=== PATIENT | female | born 1995 | race Caucasian/White ===

== ENCOUNTER 2016-09-07 14:42 | Emergency (ER) | payer OTHER ==
[~2016-09-07] VITALS: Ht 157.5 cm; Wt 92.5 kg
[2016-09-07 14:42] VITALS: BP 148/77
[2016-09-07] MEDS ORDERED: birth control (14:56)
[2016-09-07] MEDS ORDERED: ZYRT10CA PO (14:56)
[2016-09-07] MEDS ORDERED: FLON1SPR (15:26)
== END 2016-09-07 15:38 | disposition home or self-care (01) ==
LOC: M ED 15:24
DX: J00 Acute nasopharyngitis [common cold] (principal); J30.2 Other seasonal allergic rhinitis; Z79.3 Long term (current) use of hormonal contraceptives; Z79.899 Other long term (current) drug therapy

== ENCOUNTER 2016-12-10 20:10 | Emergency (ER) | payer OTHER ==
[~2016-12-10] VITALS: Ht 157.5 cm; Wt 98.0 kg
[2016-12-10 20:10] VITALS: BP 135/86
[~2016-12-10 20:10] MED LIST: FLON1SPR; ZYRT10CA PO; birth control
[2016-12-10] MEDS ORDERED: PRENTAB44 PO (20:29)
[2016-12-10] MEDS ORDERED: ACETAMINOPHEN TAB 650MG DOSE (2X325MG) PO ONE (21:00)
[2016-12-10] MEDS ORDERED: ONDANSETRON 4 MG ORAL DISINTEGRATING TAB (S0181) PO ONE (21:00)
[2016-12-10 21:34] LABS: BASO % 0.2 % (0.0-1.0); EOS # 0.7 10^3/uL (0.0-0.50); EOS % 5.2 % (0.0-3.0); IMMATURE GRANULOCYTE % 0.2 % (0-0); LYMPH % 23.5 % (24.0-44.0); MEAN CORPUSCULAR HGB CONC 34.2 g/dl (32.0-36.5); MEAN CORPUSCULAR VOLUME 93.6 fl (80.0-96.0); MONO % 7.8 % (0.0-5.0); NEUTROPHILS # 8.1 10^3/uL (1.8-7.7); NEUTROPHILS % 63.1 % (36.0-66.0); PLATELET COUNT, AUTOMATED 238 10^3/uL (150-450); WHITE BLOOD COUNT 12.8 10^3/uL (4.0-10.0)
[2016-12-10 21:35] LABS: ADD MORPHOLOGY? NO
[2016-12-10 21:47] LABS: ANION GAP 6 MEQ/L (8-16); BLOOD UREA NITROGEN 8 MG/DL (7-18); CALCIUM LEVEL 9.2 MG/DL (8.5-10.1); CARBON DIOXIDE LEVEL 28 MEQ/L (21-32); CHLORIDE LEVEL 107 MEQ/L (98-107); CREATININE FOR GFR 0.67 MG/DL (0.55-1.02); GLOMERULAR FILTRATION RATE > 60.0 (>60); GLUCOSE, FASTING 78 MG/DL (70-105); POTASSIUM SERUM 3.5 MEQ/L (3.5-5.1); SODIUM LEVEL 141 MEQ/L (136-145)
--- NOTE | 2016-12-10 22:00 | REPUSA ---
Clinical history: bleeding. Findings: Real-time transabdominal and transvaginal ultrasound images of the pelvis were obtained. An anteverted uterus is noted, measuring 9.2 x 4.4 x 5.0 cm. There is a single intrauterine gestational sac with a mean sac diameter of 4.8 mm. No evidence of a pole or yolk sac is identified at thi s time. The right ovary measures 3.5 x 2.0 x 2.4 cm. The left ovary measures 3.0 x 1.6 x 2.0 cm. Ther e is a small right ovarian cyst measuring 1.2 cm. No adnexal masses are seen. Color Doppler flow is s een within both ovaries. There is a small amount of free fluid. Impression: 1. Tiny intrauterine gestational sac, without evidence of a pole or yolk sac at this time. Gest ation measures approximately 5 weeks 2 days by ultrasound measurements. 2. Small right ovarian corpus luteum cyst. 3. Follow-up is recommended as clinically indicated.
== END 2016-12-10 22:58 | disposition home or self-care (01) ==
LOC: M ED 20:10
DX: O20.0 Threatened abortion (principal); Z3A.01 Less than 8 weeks gestation of pregnancy; Z79.899 Other long term (current) drug therapy; Z91.013 Allergy to seafood

== ENCOUNTER → 2016-12-12 | Outpatient (CLI) | payer OTHER ==
[~2016-12-12] MED LIST changes: +PRENTAB44 PO
== END ==
LOC: M LAB 15:29
PROVIDERS: ATTEND Physician Assistant Surgical
DX: O20.9 Hemorrhage in early pregnancy, unspecified (principal); Z3A.00 Weeks of gestation of pregnancy not specified

== ENCOUNTER 2017-03-18 09:57 | Emergency (ER) | payer OTHER ==
[2017-03-18 11:06] LABS: EOS # 0.2 10^3/uL (0.0-0.50); EOS % 2.2 % (0.0-3.0); HEMATOCRIT 38.2 % (36.0-47.0); HEMOGLOBIN 12.9 g/dl (12.0-16.0); IMMATURE GRANULOCYTE % 0.4 % (0-0); LYMPH # 1.7 10^3/uL (1.5-6.5); LYMPH % 17.8 % (24.0-44.0); MEAN CORPUSCULAR HEMOGLOBIN 31.2 pg (27.0-33.0); MEAN CORPUSCULAR HGB CONC 33.8 g/dl (32.0-36.5); MEAN CORPUSCULAR VOLUME 92.5 fl (80.0-96.0); MONO # 0.6 10^3/uL (0.0-0.8); MONO % 6.2 % (0.0-5.0); NEUTROPHILS # 6.9 10^3/uL (1.8-7.7); NEUTROPHILS % 73.4 % (36.0-66.0); PLATELET COUNT, AUTOMATED 275 10^3/uL (150-450); RED BLOOD COUNT 4.13 10^6/uL (4.00-5.40); RED CELL DISTRIBUTION WIDTH 12.9 % (11.5-14.5); WHITE BLOOD COUNT 9.4 10^3/uL (4.0-10.0)
[2017-03-18 11:56] LABS: HCG, SERUM QUANTITATIVE 2307 MIU/ML
== END 2017-03-18 12:32 | disposition home or self-care (01) ==
LOC: M ED 09:57
DX: O26.851 Spotting complicating pregnancy, first trimester (principal); O09.291 Supervision of pregnancy with other poor reproductive or obstetric history, first trimester; Z3A.00 Weeks of gestation of pregnancy not specified
CPT/HCPCS: 76801

== ENCOUNTER 2017-09-16 10:54 | Outpatient (CLI) | payer OTHER ==
[2017-09-16] MEDS: LACTATED RINGER'S 1000 ML IV (11:35)
[2017-09-16] MEDS: LR 1,000 ML IV (12:29)
== END 2017-09-16 14:35 | disposition home or self-care (01) ==
LOC: M LDO 10:54
DX: O99.89 Other specified diseases and conditions complicating pregnancy, childbirth and the puerperium (principal); Z3A.31 31 weeks gestation of pregnancy; E86.0 Dehydration; O99.213 Obesity complicating pregnancy, third trimester; O99.513 Diseases of the respiratory system complicating pregnancy, third trimester
CPT/HCPCS: 59025

== ENCOUNTER 2017-11-01 20:32 | Outpatient (CLI) | payer OTHER ==
[2017-11-01 22:19] LABS: APPEARANCE, URINE CLOUDY (CLEAR); BACTERIA, URINE AUTO 2+ (NEGATIVE); BILIRUBIN, URINE AUTO NEGATIVE (NEGATIVE); BLOOD, URINE BLOOD 1+ (NEGATIVE); COLOR, URINE YELLOW (YELLOW); GLUCOSE, URINE (UA) AUTO NEGATIVE (NEGATIVE); KETONE, URINE AUTO NEGATIVE (NEGATIVE); LEUKOCYTE ESTERASE, URINE AUTO 3+ (NEGATIVE); NITRITE, URINE AUTO NEGATIVE (NEGATIVE); PROTEIN, URINE AUTO NEGATIVE (NEGATIVE); RBC, URINE AUTO 67 /HPF (0-3); SPECIFIC GRAVITY URINE AUTO 1.002 (1.002-1.035); SQUAMOUS EPITHELIAL CELL UR AU 9 /HPF (0-6); UROBILINOGEN, URINE AUTO 0.2 mg/dL (0.0-2.0); WBC, URINE AUTO TNTC /HPF (0-3)
== END 2017-11-01 22:10 | disposition home or self-care (01) ==
LOC: M LDO 20:32
DX: O36.8130 Decreased fetal movements, third trimester, not applicable or unspecified (principal); Z3A.38 38 weeks gestation of pregnancy
CPT/HCPCS: 59025

== ENCOUNTER 2017-11-11 17:05 | Inpatient (IN) | payer OTHER ==
[2017-11-11 18:19] LABS: HEMATOCRIT 34.9 % (36.0-47.0); HEMOGLOBIN 11.2 g/dl (12.0-15.5); MEAN CORPUSCULAR HEMOGLOBIN 28.9 pg (27.0-33.0); MEAN CORPUSCULAR HGB CONC 32.1 g/dl (32.0-36.5); MEAN CORPUSCULAR VOLUME 89.9 fl (80.0-96.0); PLATELET COUNT, AUTOMATED 165 10^3/uL (150-450); RED BLOOD COUNT 3.88 10^6/uL (4.00-5.40); RED CELL DISTRIBUTION WIDTH 14.6 % (11.5-14.5); WHITE BLOOD COUNT 8.5 10^3/uL (4.0-10.0)
[2017-11-11] MEDS: LR 1,000 ML IV (18:46)
[2017-11-11] MEDS: miSOPROStol 50 MCG 1/2 TAB (S0191) PO ×2 (18:46→23:30)
[2017-11-11 18:48] LABS: GLUCOSE,RANDOM 92 MG/DL (LESS THAN 200)
[2017-11-11 18:59] LABS: ESTIMATED AVERAGE GLUCOSE 114 MG/DL (60-110); HEMOGLOBIN A1c 5.6 %
[2017-11-12] MEDS: LR 1,000 ML IV ×4 (02:34→20:55)
[2017-11-12] MEDS: BUTORPHANOL 2 MG/ML INJ (J0595) IV (04:15)
[2017-11-12] MEDS: PROMETHAZINE INJ 25 MG/ML VIAL (J2550) IV (04:15)
[2017-11-12] MEDS ORDERED: BUTORPHANOL 2 MG/ML INJ (J0595) As Ordered (04:17)
[2017-11-12] MEDS ORDERED: PROMETHAZINE INJ 25 MG/ML VIAL (J2550) As Ordered (04:17)
[2017-11-12] MEDS ORDERED: OXYTOCIN DRIP 30 UNITS in APPROPRIATE DILUENT 1 EA IV (08:45)
[2017-11-12] MEDS ORDERED: OXYTOCIN 30 UNITS IN 0.9% NaCl 500ML IV BAG (J2590) As Ordered (08:55)
[2017-11-12] MEDS ORDERED: FENTANYL 2MCG/ML ROPIVACAINE 0.2% IN 0.9% NACL 200ML IVBAG As Ordered (11:38)
[2017-11-12] MEDS ORDERED: EPIDURAL COMMENT XX (13:45)
[2017-11-12] MEDS ORDERED: EPIDURAL/PCA KEYS XX (13:45)
[2017-11-12] MEDS ORDERED: LACTATED RINGER'S 1000 ML IV (13:45)
[2017-11-12] MEDS ORDERED: REFRIGERATOR IV KEYS XX (13:45)
[2017-11-12] MEDS ORDERED: diphenhydrAMINE INJ 50MG/ML VIAL (J1200) IV (13:45)
[2017-11-12] MEDS ORDERED: ePHEDrine SULFATE 25 MG/5 ML(5MG/ML) SYRINGE IV (13:45)
[2017-11-12] MEDS ORDERED: ONDANSETRON 4MG/2ML VIAL (J2405) IV (13:45)
[2017-11-12] MEDS ORDERED: NALOXONE INJ 0.4 MG/1 ML VIAL (J2310) IV (13:45)
[2017-11-12] MEDS ORDERED: FENTANYL/ROPIVACAINE/NACL BAG 200 ML EPIDURAL (13:45)
[2017-11-13] MEDS: LR 1,000 ML IV ×3 (04:46→21:00)
[2017-11-13] MEDS ORDERED: ceFAZolin 2 GM/D5W 50 ML IV BAG (J0690 PER 500MG) As Ordered (05:55)
[2017-11-13] MEDS ORDERED: BICITRA 30ML SOLN UDC As Ordered (05:55)
[2017-11-13] MEDS: BICITRA 30ML SOLN UDC PO (06:00)
[2017-11-13] MEDS ORDERED: OXYTOCIN INJ 10 UNITS/ML VIAL (J2590) As Ordered ×3 (06:26→07:11)
[2017-11-13] MEDS ORDERED: MORPHINE PRES-FREE INJ 10 MG/10 ML VIAL (J2274) As Ordered (06:26)
[2017-11-13] MEDS ORDERED: LIDOCAINE PRES-FREE 2% 10ML AMP As Ordered (06:26)
[2017-11-13] MEDS ORDERED: ONDANSETRON 4MG/2ML VIAL (J2405) IV (06:29)
[2017-11-13] MEDS ORDERED: METOCLOPRAMIDE INJ 10MG/2ML VIAL (J2765) IV (06:29)
[2017-11-13] MEDS ORDERED: NALBUPHINE HCL 10 MG/ML AMP (J2300) IV ×2 (06:29→09:00)
[2017-11-13] MEDS ORDERED: ONDANSETRON 4MG/2ML VIAL (J2405) As Ordered (06:29)
[2017-11-13] MEDS ORDERED: KETOROLAC 60 MG/2 ML VIAL (J1885) As Ordered (06:29)
[2017-11-13] MEDS ORDERED: NALOXONE INJ 0.4 MG/1 ML VIAL (J2310) IV ×2 (06:29)
[2017-11-13] MEDS ORDERED: PROPOFOL 200 MG/20 ML VIAL As Ordered (06:49)
[2017-11-13] MEDS ORDERED: PHENYLephrine HCL 500 MCG/5 ML (100MCG/ML) SYRINGE (J2370) As Ordered (06:56)
[2017-11-13] MEDS ORDERED: fentaNYL 100 MCG/2 ML INJECTION (J3010) As Ordered ×2 (07:04→08:23)
[2017-11-13 07:16] LABS: iSTAT CA++ 4.7 MG/DL (4.5-5.3)
[2017-11-13 07:40] LABS: CORD GAS ABE V -3.4; CORD GAS HCO3 V 21.9 MEQ/L; CORD GAS O2 SAT V 43.6 %; CORD GAS PCO2 V 40.4 mmHg; CORD GAS PH V 7.351 UNITS; CORD GAS PO2 V 21.6 mmHg; CORD GAS SBC V 20.3 MEQ/L; CORD GAS TCO2 V 23.1 MEQ/L
[2017-11-13 07:43] LABS: CORD GAS ABE A -4.8; CORD GAS O2 SAT A < 15.0 %; CORD GAS PCO2 A 46.7 mmHg; CORD GAS PO2 A < 10.0 mmHg; CORD GAS TCO2 A 23.4 MEQ/L
[2017-11-13] MEDS ORDERED: OXYTOCIN 30 UNITS IN 0.9% NaCl 500ML IV BAG (J2590) As Ordered (07:59)
[2017-11-13] MEDS: OXYTOCIN DRIP 30 UNITS in APPROPRIATE DILUENT 1 EA IV (08:02)
[2017-11-13] MEDS ORDERED: RHOGAM 300 MCG (1500 IU) INJ (J2790) IM (08:15)
[2017-11-13] MEDS ORDERED: MEASLES,MUMPS,RUBELLA VACCINE INJ (MMR-II) (90707) SC (08:15)
[2017-11-13] MEDS ORDERED: MEPERIDINE INJ 25 MG/ML VIAL (J2175) IV (09:00)
[2017-11-13] MEDS ORDERED: fentaNYL 100 MCG/2 ML INJECTION (J3010) IV (09:00)
[2017-11-13] MEDS: DOCUSATE SODIUM 100 MG CAP PO ×2 (09:00→19:39)
[2017-11-13] MEDS: PRENATAL VITAMINS CHEWABLE TABLET PO (09:00)
[2017-11-13] MEDS: LACTATED RINGER'S 1000 ML IV (09:15)
[2017-11-13 12:08] LABS: HEMATOCRIT 25.8 % (36.0-47.0); MEAN CORPUSCULAR HEMOGLOBIN 29.5 pg (27.0-33.0); MEAN CORPUSCULAR HGB CONC 32.9 g/dl (32.0-36.5); MEAN CORPUSCULAR VOLUME 89.6 fl (80.0-96.0); PLATELET COUNT, AUTOMATED 133 10^3/uL (150-450); RED BLOOD COUNT 2.88 10^6/uL (4.00-5.40); WHITE BLOOD COUNT 15.2 10^3/uL (4.0-10.0)
[2017-11-13 12:42] LABS: HEMOGLOBIN 8.5 g/dl (12.0-15.5)
[2017-11-13] MEDS: KETOROLAC 30 MG/ML VIAL (J1885) IV ×2 (13:45→19:39)
[2017-11-13] MEDS ORDERED: ENOXAPARIN 40 MG/0.4 ML SYRINGE (J1650) SC (16:00)
[2017-11-13] MEDS: PERCOCET 5MG/325MG TAB PO ×2 (17:03→22:52)
[2017-11-13] MEDS ORDERED: METAL LOCK LOOP XX (19:10)
[2017-11-14] MEDS: KETOROLAC 30 MG/ML VIAL (J1885) IV ×2 (00:53→07:34)
[2017-11-14] MEDS: ONDANSETRON 4MG/2ML VIAL (J2405) IV ×2 (00:55→11:21)
[2017-11-14] MEDS: PERCOCET 5MG/325MG TAB PO (03:25)
[2017-11-14 07:12] LABS: HEMATOCRIT 23.9 % (36.0-47.0); HEMOGLOBIN 7.7 g/dl (12.0-15.5); MEAN CORPUSCULAR HEMOGLOBIN 29.5 pg (27.0-33.0); MEAN CORPUSCULAR HGB CONC 32.2 g/dl (32.0-36.5); MEAN CORPUSCULAR VOLUME 91.6 fl (80.0-96.0); PLATELET COUNT, AUTOMATED 130 10^3/uL (150-450); RED BLOOD COUNT 2.61 10^6/uL (4.00-5.40); RED CELL DISTRIBUTION WIDTH 15.3 % (11.5-14.5); WHITE BLOOD COUNT 12.1 10^3/uL (4.0-10.0)
[2017-11-14] MEDS: ENOXAPARIN 40 MG/0.4 ML SYRINGE (J1650) SC (07:34)
[2017-11-14] MEDS: DOCUSATE SODIUM 100 MG CAP PO ×2 (08:48→20:26)
[2017-11-14] MEDS: PRENATAL VITAMINS CHEWABLE TABLET PO (08:49)
[2017-11-14] MEDS: diphenhydrAMINE 50 MG CAP PO (12:24)
[2017-11-14] MEDS: ACETAMINOPHEN TAB 650MG DOSE (2X325MG) PO (12:24)
[2017-11-14 13:34] LABS: HEMATOCRIT 23.6 % (36.0-47.0); HEMOGLOBIN 7.5 g/dl (12.0-15.5); MEAN CORPUSCULAR HEMOGLOBIN 29.4 pg (27.0-33.0); MEAN CORPUSCULAR HGB CONC 31.8 g/dl (32.0-36.5); MEAN CORPUSCULAR VOLUME 92.5 fl (80.0-96.0); PLATELET COUNT, AUTOMATED 124 10^3/uL (150-450); RED BLOOD COUNT 2.55 10^6/uL (4.00-5.40); RED CELL DISTRIBUTION WIDTH 15.4 % (11.5-14.5); WHITE BLOOD COUNT 11.2 10^3/uL (4.0-10.0)
[2017-11-14] MEDS: IBUPROFEN 800 MG TAB PO ×2 (15:28→22:53)
[2017-11-14] MEDS ORDERED: PILL CRUSHER/CUTTER 1 EACH XX (15:45)
[2017-11-14 15:56] LABS: IMMEDIATE SPIN CROSSMATCH 1 2
[2017-11-14 23:42] LABS: HEMATOCRIT 26.8 % (36.0-47.0); HEMOGLOBIN 8.8 g/dl (12.0-15.5); MEAN CORPUSCULAR HEMOGLOBIN 29.3 pg (27.0-33.0); MEAN CORPUSCULAR HGB CONC 32.8 g/dl (32.0-36.5); MEAN CORPUSCULAR VOLUME 89.3 fl (80.0-96.0); PLATELET COUNT, AUTOMATED 119 10^3/uL (150-450); RED CELL DISTRIBUTION WIDTH 14.8 % (11.5-14.5); WHITE BLOOD COUNT 11.6 10^3/uL (4.0-10.0)
[2017-11-15] MEDS: METOCLOPRAMIDE INJ 10MG/2ML VIAL (J2765) IV (01:12)
[2017-11-15 08:21] LABS: HEMATOCRIT 26.5 % (36.0-47.0); HEMOGLOBIN 8.9 g/dl (12.0-15.5); MEAN CORPUSCULAR HEMOGLOBIN 29.8 pg (27.0-33.0); MEAN CORPUSCULAR HGB CONC 33.6 g/dl (32.0-36.5); MEAN CORPUSCULAR VOLUME 88.6 fl (80.0-96.0); PLATELET COUNT, AUTOMATED 143 10^3/uL (150-450); RED BLOOD COUNT 2.99 10^6/uL (4.00-5.40); RED CELL DISTRIBUTION WIDTH 14.9 % (11.5-14.5); WHITE BLOOD COUNT 11.4 10^3/uL (4.0-10.0)
[2017-11-15] MEDS: PRENATAL VITAMINS CHEWABLE TABLET PO (08:25)
[2017-11-15] MEDS: DOCUSATE SODIUM 100 MG CAP PO (08:27)
[2017-11-15] MEDS: ENOXAPARIN 40 MG/0.4 ML SYRINGE (J1650) SC (08:27)
[2017-11-15] MEDS: IBUPROFEN 800 MG TAB PO (08:27)
== END 2017-11-15 12:05 | disposition home or self-care (01) | DRG 765 ==
LOC: M LDI 17:05 → M OBS 11-13 10:38
PROVIDERS: Obstetrics & Gynecology
PROC: 3E0P7GC Introduction of Other Therapeutic Substance into Female Reproductive, Via Natural or Artificial Opening (ICD-10-PCS; 2017-11-11)
PROC: 30233N1 Transfusion of Nonautologous Red Blood Cells into Peripheral Vein, Percutaneous Approach (ICD-10-PCS; 2017-11-11)
PROC: 10D00Z1 Extraction of Products of Conception, Low, Open Approach (ICD-10-PCS; principal; 2017-11-13)
DX: O99.214 Obesity complicating childbirth (principal); Z68.41 Body mass index [BMI] 40.0-44.9, adult; O67.8 Other intrapartum hemorrhage; E66.9 Obesity, unspecified; O69.89X0 Labor and delivery complicated by other cord complications, not applicable or unspecified; O62.0 Primary inadequate contractions; O90.81 Anemia of the puerperium; O77.0 Labor and delivery complicated by meconium in amniotic fluid; Z37.0 Single live birth; Z3A.39 39 weeks gestation of pregnancy

== ENCOUNTER 2017-11-26 16:17 | Inpatient (IN) | payer OTHER ==
[2017-11-26] MEDS ORDERED: ACETAMINOPHEN 500 MG TAB PO (18:45)
[2017-11-26] MEDS ORDERED: BISACODYL 5 MG TAB PO (18:45)
[2017-11-26 19:56] LABS: BASO % 0.1 % (0.0-1.0); EOS # 0.6 10^3/uL (0.0-0.50); EOS % 4.9 % (0.0-3.0); HEMATOCRIT 33.7 % (36.0-47.0); HEMOGLOBIN 10.7 g/dl (12.0-15.5); IMMATURE GRANULOCYTE % 0.7 % (0-3.0); LYMPH # 1.7 10^3/uL (1.5-6.5); LYMPH % 14.2 % (24.0-44.0); MEAN CORPUSCULAR HEMOGLOBIN 29.2 pg (27.0-33.0); MEAN CORPUSCULAR HGB CONC 31.8 g/dl (32.0-36.5); MEAN CORPUSCULAR VOLUME 92.1 fl (80.0-96.0); MONO # 0.9 10^3/uL (0.0-0.8); MONO % 7.3 % (0.0-5.0); NEUTROPHILS # 8.8 10^3/uL (1.8-7.7); NEUTROPHILS % 72.8 % (36.0-66.0); PLATELET COUNT, AUTOMATED 408 10^3/uL (150-450); RED BLOOD COUNT 3.66 10^6/uL (4.00-5.40); RED CELL DISTRIBUTION WIDTH 14.6 % (11.5-14.5); WHITE BLOOD COUNT 12.1 10^3/uL (4.0-10.0)
[2017-11-26] MEDS: CLINDAMYCIN 900 MG in APPROPRIATE DILUENT 1 EA IV (20:12)
[2017-11-26 20:37] LABS: ALBUMIN 2.7 GM/DL (3.2-5.2); ALBUMIN/GLOBULIN RATIO 0.66 (1.00-1.93); ALKALINE PHOSPHATASE 104 U/L (45-117); ALT/SGPT 21 U/L (12-78); ANION GAP 8 MEQ/L (8-16); AST/SGOT 13 U/L (7-37); BILIRUBIN,TOTAL 0.4 MG/DL (0.2-1.0); BLOOD UREA NITROGEN 13 MG/DL (7-18); CALCIUM LEVEL 8.6 MG/DL (8.5-10.1); CARBON DIOXIDE LEVEL 25 MEQ/L (21-32); CHLORIDE LEVEL 108 MEQ/L (98-107); CREATININE FOR GFR 0.81 MG/DL (0.55-1.30); GLOMERULAR FILTRATION RATE > 60.0 (>60); GLUCOSE, FASTING 96 MG/DL (70-100); POTASSIUM SERUM 3.9 MEQ/L (3.5-5.1); SODIUM LEVEL 141 MEQ/L (136-145); TOTAL PROTEIN 6.8 GM/DL (6.4-8.2)
[2017-11-26] MEDS: GENTAMICIN 80 MG in APPROPRIATE DILUENT 1 EA IV (21:11)
[2017-11-27] MEDS: CLINDAMYCIN 900 MG in APPROPRIATE DILUENT 1 EA IV ×3 (04:07→20:19)
[2017-11-27 06:21] LABS: HEMATOCRIT 32.4 % (36.0-47.0); HEMOGLOBIN 10.1 g/dl (12.0-15.5); MEAN CORPUSCULAR HEMOGLOBIN 28.7 pg (27.0-33.0); MEAN CORPUSCULAR HGB CONC 31.2 g/dl (32.0-36.5); PLATELET COUNT, AUTOMATED 387 10^3/uL (150-450); RED BLOOD COUNT 3.52 10^6/uL (4.00-5.40); RED CELL DISTRIBUTION WIDTH 14.6 % (11.5-14.5); WHITE BLOOD COUNT 12.3 10^3/uL (4.0-10.0)
[2017-11-27] MEDS: ENOXAPARIN 30 MG/0.3 ML SYR (J1650) SC (09:27)
[2017-11-27] MEDS: GENTAMICIN 80 MG in APPROPRIATE DILUENT 1 EA IV (09:27)
[2017-11-27] MEDS ORDERED: ONDANSETRON 4MG/2ML VIAL (J2405) IV (11:00)
[2017-11-27] MEDS: GENTAMICIN 100 MG in APPROPRIATE DILUENT 1 EA IV (16:45)
[2017-11-27] MEDS ORDERED: PANTOPRAZOLE 20 MG TAB PO (21:00)
[2017-11-27] MEDS: CETIRIZINE (ZyrTEC) 10 MG TAB PO (23:44)
[2017-11-27] MEDS: PANTOPRAZOLE 20 MG TAB PO (23:45)
[2017-11-28] MEDS: GENTAMICIN 100 MG in APPROPRIATE DILUENT 1 EA IV ×3 (01:13→16:44)
[2017-11-28] MEDS: CLINDAMYCIN 900 MG in APPROPRIATE DILUENT 1 EA IV ×3 (03:46→20:11)
[2017-11-28 06:18] LABS: HEMATOCRIT 32.8 % (36.0-47.0); HEMOGLOBIN 10.4 g/dl (12.0-15.5); MEAN CORPUSCULAR HEMOGLOBIN 28.9 pg (27.0-33.0); MEAN CORPUSCULAR HGB CONC 31.7 g/dl (32.0-36.5); MEAN CORPUSCULAR VOLUME 91.1 fl (80.0-96.0); PLATELET COUNT, AUTOMATED 396 10^3/uL (150-450); RED CELL DISTRIBUTION WIDTH 14.6 % (11.5-14.5); WHITE BLOOD COUNT 10.5 10^3/uL (4.0-10.0)
[2017-11-28] MEDS ORDERED: LIDOCAINE 1% MDV 20ML VIAL As Ordered (09:10)
[2017-11-28] MEDS: ENOXAPARIN 30 MG/0.3 ML SYR (J1650) SC (09:46)
[2017-11-28] MEDS: LIDOCAINE 1% MDV 20ML VIAL SC (10:00)
[2017-11-28 16:40] LABS: GENTAMICIN LEVEL TROUGH 1.3 MCG/ML (0.0-2.0)
[2017-11-28] MEDS: CETIRIZINE (ZyrTEC) 10 MG TAB PO (20:11)
[2017-11-28] MEDS: PANTOPRAZOLE 20 MG TAB PO (20:11)
[2017-11-28] MEDS: PERCOCET 5MG/325MG TAB PO (22:00)
[2017-11-29] MEDS: GENTAMICIN 100 MG in APPROPRIATE DILUENT 1 EA IV (01:33)
[2017-11-29] MEDS: CLINDAMYCIN 900 MG in APPROPRIATE DILUENT 1 EA IV (04:14)
== END 2017-11-29 10:15 | disposition home or self-care (01) | DRG 769 ==
LOC: M PED 11-28 21:21 → M MSPAV 16:17 → M PED 11-28 21:30
PROC: 0JD70ZZ Extraction of Back Subcutaneous Tissue and Fascia, Open Approach (ICD-10-PCS; principal; 2017-11-28)
DX: O86.0 Infection of obstetric surgical wound (principal); L03.311 Cellulitis of abdominal wall; L05.01 Pilonidal cyst with abscess; O99.73 Diseases of the skin and subcutaneous tissue complicating the puerperium; B95.61 Methicillin susceptible Staphylococcus aureus infection as the cause of diseases classified elsewhere

== ENCOUNTER 2019-05-01 17:25 | Emergency (ER) | payer OTHER ==
[~2019-05-01] VITALS: Ht 157.5 cm; Wt 113.9 kg
[~2019-05-01 17:25] MED LIST changes: +ACET-683 PO; +BENA25CA4 PO; +BENA25TA10 PO; +COLA100C5 PO; +FLON1SPR NARES; +IBUP-1114 PO; +NORE0.353 PO; +OXYC1TAB23 PO; +PROAAER10; +PROAAER10 INH; +RANI150T PO; +TUMS500C PO; +bactrim
--- NOTE | 2019-05-01 18:43 | REPVR ---
PROCEDURE INFORMATION: Exam: CT Head Without Contrast Exam date and time: 05/01/2019 6:08 PM Age: 23 years old Clinical indication: Injury or trauma; Fall; Initial encounter; Blunt trauma (contusions or hematomas) TECHNIQUE: Imaging protocol: Computed tomography of the head without contrast. Radiation optimization: All CT scans at this facility use at least one of these dose optimization techniques: automated exposure control; mA and/or kV adjustment per patient size (includes targeted exams where dose is matched to clinical indication); or iterative reconstruction. COMPARISON: No relevant prior studies available. FINDINGS: Brain: Normal. No hemorrhage. Unremarkable white matter. No mass effect. Ventricles: Normal. No ventriculomegaly. Bones/joints: Unremarkable. No acute fracture. Sinuses: Visualized sinuses are unremarkable. No fluid levels. Mastoid air cells: Visualized mastoid air cells are well aerated. Soft tissues: Unremarkable. IMPRESSION: No acute intracranial abnormality. Electronically signed by: Hussein Saini On 05/01/2019 18:43:48 PM
[2019-05-01] MEDS ORDERED: IBUP-1022 PO (19:26)
[2019-05-01 19:32] VITALS: BP 133/84
--- NOTE | 2019-05-01 19:52 | REP ---
Clinical: Trauma. Fall. Technique: AP, AP angled, and lateral view of the sacrum and coccyx. Findings: No acute fracture dislocation. Acute angulation of the distal sacrum is stable when compared with sagittal re-formations from CT dated 11/26/2017. Impression: No acute fracture or dislocation. Electronically Signed by Petar Holland MD 05/01/2019 07:44 P
[2019-05-02] MEDS ORDERED: METAL LOCK LOOP XX ONE (02:18)
== END 2019-05-01 19:34 | disposition home or self-care (01) ==
LOC: M ED 17:25
DX: S00.03XA Contusion of scalp, initial encounter (principal); S30.0XXA Contusion of lower back and pelvis, initial encounter; W18.39XA Other fall on same level, initial encounter; Y92.018 Other place in single-family (private) house as the place of occurrence of the external cause; Z91.018 Allergy to other foods

== ENCOUNTER → 2019-08-08 | Outpatient (REF) | payer OTHER ==
[~2019-08-08] MED LIST changes: +IBUP-1022 PO
== END ==
LOC: M LAB REF 15:57
PROVIDERS: ATTEND Obstetrics & Gynecology
DX: Z32.02 Encounter for pregnancy test, result negative (principal)

== ENCOUNTER 2019-09-12 22:23 | Emergency (ER) | payer OTHER ==
[~2019-09-12] VITALS: Ht 157.5 cm; Wt 116.2 kg
[2019-09-13 00:07] VITALS: BP 137/81
== END 2019-09-13 00:18 | disposition home or self-care (01) ==
LOC: M ED 22:23
DX: R11.2 Nausea with vomiting, unspecified (principal); R19.7 Diarrhea, unspecified; R09.89 Other specified symptoms and signs involving the circulatory and respiratory systems

== ENCOUNTER → 2019-09-26 | Outpatient (CLI) | payer OTHER ==
[~2019-09-26] MED LIST changes: +CETI10CH PO; +E-Z-GAS II EFFERVESCENT PACKET (SODIUM BICARB./CITRIC ACID/SIMETHICONE) As Ordered ONE; +E-Z-HD 98% w/w 340GM SUSP BTL As Ordered ONE; +E-Z-PAQUE 96% w/w SUSP 176GM BTL As Ordered ONE
--- NOTE | 2019-09-26 22:56 | REP ---
Examination Requested: Esophagram Barium Swallow Reason For Exam/Comment: Difficulty swallowing, dysphasia Esophagram: The procedure was performed PHILIPP Lynch, under the direct supervision of Dr. Galdamez. The images were reviewed with Dr. Galdamez. A single PA chest x-ray is submitted as a baseball scout film. The superior mediastinal structures are midline. The heart size is within normal limits. The lungs are clear. Liquid barium and gas producing granules were given in the erect position as well as liquid barium in the prone oblique position, in order to perform a double contrast esophagram examination. Oral and pharyngeal stages of the examination were unremarkable. There is mild narrowing of the proximal one third of the esophagus with mucosal irregularity. There is no hiatal hernia noted. Gastroesophageal reflux was not visualized during this exam. Impression: 1. Mild narrowing of the proximal one third of the esophagus with mucosal irregularity. The findings are compatible with esophagitis. 0.2 minutes of fluoroscopy time was utilized for this procedure. Some fluoroscopic images are performed with last image hold technology. These images require no additional radiation. Reviewed by PHILIPP Velazquez 09/26/2019 04:21 P Electronically Signed by John Galdamez MD 09/26/2019 10:48 P
== END ==
LOC: M RAD 09:23
PROVIDERS: ATTEND Nurse Practitioner
DX: K22.8 Other specified diseases of esophagus (principal); R13.10 Dysphagia, unspecified

== ENCOUNTER → 2019-09-29 | Outpatient (CLI) | payer OTHER ==
[~2019-09-29] MED LIST changes: -E-Z-GAS II EFFERVESCENT PACKET (SODIUM BICARB./CITRIC ACID/SIMETHICONE) As Ordered ONE; -E-Z-HD 98% w/w 340GM SUSP BTL As Ordered ONE; -E-Z-PAQUE 96% w/w SUSP 176GM BTL As Ordered ONE; +LIDOCAINE 2% 100MG/5ML SDV (FOR ANES.) As Ordered ONE; +LIDOCAINE 2% JELLY 5ML TUBE As Ordered ONE; +MIDAZOLAM INJ 2MG/2ML VIAL (J2250 PER 1MG) As Ordered ONE; +ONDANSETRON 4MG/2ML VIAL As Ordered ONE; +ROCURONIUM BROMIDE 50 MG/5 ML VIAL As Ordered ONE; +dexameTHASONE 4 MG/ML 1ML VIAL (J1100 PER 1MG) As Ordered ONE; +fentaNYL 100 MCG/2 ML INJECTION (J3010) As Ordered ONE; +propofoL 200 MG/20 ML VIAL As Ordered ONE
== END ==
LOC: M LABSMTC 09:52
PROVIDERS: ATTEND Anesthesiology
DX: Z01.818 Encounter for other preprocedural examination (principal); Z11.59 Encounter for screening for other viral diseases
CPT/HCPCS: C9803; U0003

== ENCOUNTER 2019-10-04 08:31 | Day surgery (SDC) | payer OTHER ==
[~2019-10-04] VITALS: Ht 160 cm; Wt 115.2 kg
[~2019-10-04 08:31] MED LIST changes: -LIDOCAINE 2% 100MG/5ML SDV (FOR ANES.) As Ordered ONE; -LIDOCAINE 2% JELLY 5ML TUBE As Ordered ONE; -MIDAZOLAM INJ 2MG/2ML VIAL (J2250 PER 1MG) As Ordered ONE; +NS 1,000 ML IV ONE; -ONDANSETRON 4MG/2ML VIAL As Ordered ONE; -ROCURONIUM BROMIDE 50 MG/5 ML VIAL As Ordered ONE; -dexameTHASONE 4 MG/ML 1ML VIAL (J1100 PER 1MG) As Ordered ONE; -fentaNYL 100 MCG/2 ML INJECTION (J3010) As Ordered ONE; -propofoL 200 MG/20 ML VIAL As Ordered ONE
[2019-10-04] MEDS ORDERED: fentaNYL 100 MCG/2 ML INJECTION (J3010) As Ordered ONE (09:38)
[2019-10-04] MEDS ORDERED: LIDOCAINE 2% 100MG/5ML SDV (FOR ANES.) As Ordered ONE (09:41)
[2019-10-04] MEDS ORDERED: propofoL 200 MG/20 ML VIAL As Ordered ONE (09:41)
--- NOTE | 2019-10-04 10:02 | ROOR ---
Patient Name: Selina Smith Procedure Date: 10/04/2019 9:38 AM Date of : 1995 Age: 24 Room: [facility] Gender: Female Note Status: Finalized Procedure: Upper GI endoscopy Indications: Dysphagia Providers: John Fisher DO Referring MD: JUNI NUÑEZ DO Requesting Provider: Medicines: Propofol per Anesthesia Complications: No immediate complications. Procedure: Pre-Anesthesia Assessment: - Prior to the procedure, a History and Physical was performed, and patient medications and allergies were reviewed. The patient is competent. The risks and benefits of the procedure and the sedation options and risks were discussed with the patient. All questions were answered and informed consent was obtained. Patient identification and proposed procedure were verified by the physician, the nurse, the anesthesiologist and the it desktop support technician in the endoscopy suite. Mental Status Examination: alert and oriented. Airway Examination: normal oropharyngeal airway and neck mobility. Respiratory Examination: clear to auscultation. CV Examination: normal. Prophylactic Antibiotics: The patient does not require prophylactic antibiotics. Prior Anticoagulants: The patient has taken no previous anticoagulant or antiplatelet agents. ASA Grade Assessment: II - A patient with mild systemic disease. After reviewing the risks and benefits, the patient was deemed in satisfactory condition to undergo the procedure. The anesthesia plan was to use monitored anesthesia care (MAC). Immediately prior to administration of medications, the patient was re-assessed for adequacy to receive sedatives. The heart rate, respiratory rate, oxygen saturations, blood pressure, adequacy of pulmonary ventilation, and response to care were monitored throughout the procedure. The physical status of the patient was re-assessed after the procedure. The Endoscope was introduced through the mouth, and advanced to the second part of duodenum. The upper GI endoscopy was accomplished without difficulty. The patient tolerated the procedure well. Findings: One benign-appearing, intrinsic moderate stenosis was found. The stenosis was traversed. Estimated blood loss was minimal. The stomach was normal. Biopsies were taken with a cold forceps in the lower third of the esophagus for histology. Impression: - Benign-appearing esophageal stenosis. - Normal stomach. - No specimens collected. Recommendation: - Patient has a contact number available for emergencies. The signs and symptoms of potential delayed complications were discussed with the patient. Return to normal activities tomorrow. Written discharge instructions were provided to the patient. - Await pathology results. John Fisher DO 10/04/2019 10:02:33 AM Electronically signed by John Fisher DO Number of Addenda: 0 Note Initiated On: 10/04/2019 9:38 AM Estimated Blood Loss: Estimated blood loss was minimal.
[2019-10-04 10:20] VITALS: BP 155/75
== END 2019-10-04 10:30 | disposition home or self-care (01) ==
LOC: M OPP 08:31
PROVIDERS: ATTEND Surgery
DX: R13.10 Dysphagia, unspecified (principal); J45.909 Unspecified asthma, uncomplicated; G43.909 Migraine, unspecified, not intractable, without status migrainosus; Z79.899 Other long term (current) drug therapy; K21.9 Gastro-esophageal reflux disease without esophagitis; Z91.013 Allergy to seafood; Z91.010 Allergy to peanuts; Z91.030 Bee allergy status; D64.9 Anemia, unspecified; Z79.51 Long term (current) use of inhaled steroids
CPT/HCPCS: 49329; 88305; J3010

== ENCOUNTER → 2019-12-05 | Outpatient (CLI) | payer OTHER ==
[~2019-12-05] MED LIST changes: -NS 1,000 ML IV ONE
--- NOTE | 2019-12-14 09:29 | REP ---
PELVIC SONOGRAPHY HISTORY: Evaluate blood flow to ovaries. Irregular menstrual bleeding. FINDINGS: Transabdominal and endovaginal scanning are included Uterine dimensions are 9.5 x 4.3 x 5.4 cm. Endometrial echo is 1.2 cm thick. Myometrium is slightly heterogeneous. No focal uterine mass is seen. No free fluid is noted. Right ovarian dimensions are 2.9 x 2.1 x 2.3 cm. Right ovary is only seen on transabdominal scanning. There is a 1.0 cm follicle cyst in the right ovary. Doppler flow in the right ovary is normal with resistive index 0.56. The left ovarian dimensions are 2.5 x 2.1 x 1.9 cm. There is a 2.0 cm follicle cyst in the left ovary. Doppler flow is present in the left ovary with resistive index normal 0.45. IMPRESSION: Small follicle cysts, one in each ovary. No significant abnormality. Doppler flow is present bilaterally in the ovaries. MTDD
== END ==
LOC: M RAD 10:17
PROVIDERS: ATTEND Obstetrics & Gynecology
DX: N83.01 Follicular cyst of right ovary (principal); N83.02 Follicular cyst of left ovary; N92.1 Excessive and frequent menstruation with irregular cycle